=== PATIENT | female | born 2000 | race Caucasian/White ===

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

== ENCOUNTER 2022-01-20 21:35 | Emergency (ER) | payer MEDICAID ==
[~2022-01-20] VITALS: Ht 157.5 cm; Wt 66.7 kg
[2022-01-20] MEDS ORDERED: LABE200T7 PO (22:19)
[2022-01-20] MEDS ORDERED: LABETALOL 20MG VIAL IV ONE (22:30)
[2022-01-20 22:41] VITALS: BP 140/82
== END 2022-01-20 22:42 | disposition home or self-care (01) ==
LOC: EDH 21:35
DX: I10 Essential (primary) hypertension (principal); R10.84 Generalized abdominal pain; R51.9 Headache, unspecified

== ENCOUNTER 2022-05-04 22:22 | Emergency (ER) | payer MEDICAID ==
[~2022-05-04] VITALS: Ht 157.5 cm; Wt 63.5 kg
[~2022-05-04 22:22] MED LIST changes: +LABE200T7 PO
[2022-05-04 22:24] VITALS: BP 139/89
== END 2022-05-04 23:05 | disposition home or self-care (01) ==
LOC: EDH 22:22
DX: R52 Pain, unspecified (principal); Z48.00 Encounter for change or removal of nonsurgical wound dressing; Z91.010 Allergy to peanuts; Z79.899 Other long term (current) drug therapy; Z79.82 Long term (current) use of aspirin; Z90.49 Acquired absence of other specified parts of digestive tract; Z98.890 Other specified postprocedural states
CPT/HCPCS: 99281

== ENCOUNTER 2023-03-03 09:42 | Emergency (ER) | payer MEDICAID ==
[~2023-03-03] VITALS: Ht 157.5 cm; Wt 59.0 kg
[2023-03-03 10:17] LABS: BASOPHILS # (AUTO) 0.03 K/uL (0.00-0.20); BASOPHILS % (AUTO) 0.3 % (0.0-5.0); EOSINOPHILS # (AUTO) 0.07 K/uL (0.00-0.70); EOSINOPHILS % (AUTO) 0.7 % (0.0-8.0); HEMATOCRIT 43.6 % (36-48); IMMATURE GRANULOCYTE ABSOLUTE 0.05 K/uL (0-1); LYMPHOCYTES # (AUTO) 2.3 K/uL (1.0-4.8); MEAN CORPUSCULAR HEMOGLOBIN 27.7 pg (27.0-33.0); MEAN CORPUSCULAR HGB CONC 33.3 g/dL (32.0-36.0); MEAN CORPUSCULAR VOLUME 83.4 fL (80-100); MONOCYTES # (AUTO) 0.7 K/uL (0.1-1.0); NEUTROPHILS # (AUTO) 6.6 K/uL (1.8-7.7); NEUTROPHILS % (AUTO) 67.5 % (40.0-77.0); PLATELET COUNT (AUTO) 221 K/uL (130-400); RED BLOOD CELL COUNT(AUTO) 5.23 MIL/uL (4.00-5.50); RED CELL DISTRIBUTION WIDTH 13.7 % (11.0-15.5); WHITE BLOOD COUNT (AUTO) 9.8 K/uL (4.8-10.8)
[2023-03-03 10:24] LABS: CREATININE 0.8 mg/dL (0.5-1.5); POTASSIUM 3.5 mmol/L (3.5-5.1)
[2023-03-03 10:30] LABS: ALBUMIN 3.9 g/dL (3.5-5.0); BILIRUBIN,TOTAL 0.1 mg/dL (0.2-1.0); TOTAL PROTEIN, SERUM 7.6 g/dL (6.0-8.3)
[2023-03-03 10:46] LABS: APPEARANCE,URINE TURBID (CLEAR); BILIRUBIN,URINE NEGATIVE (NEGATIVE); COLOR,URINE COLORLESS (YELLOW); GLUCOSE, URINE (UA) NEGATIVE (NEGATIVE); KETONES,URINE NEGATIVE (NEGATIVE); LEUKOCYTE ESTERASE ,URINE 250 Leu/uL (NEGATIVE); NITRATE,URINE NEGATIVE (NEGATIVE); OCCULT BLOOD,URINE NEGATIVE (NEGATIVE); PROTEIN,URINE NEGATIVE (NEGATIVE); UROBILINOGEN,URINE 0.2 mg/dL (0.2-1.0)
[2023-03-03 10:49] LABS: ADD UA MICROSCOPIC YES; HCG,QUALITATIVE URINE NEGATIVE (NEGATIVE)
[2023-03-03] MEDS ORDERED: CEFTRIAXONE 1G VIAL IVPB ONE (11:00)
[2023-03-03] MEDS ORDERED: 0.9%NACL 1000ML 1,000 ML IV ONE (11:00)
[2023-03-03 11:31] LABS: BACTERIA,URINE RARE /HPF (None Seen); SQUAMOUS EPITHELIAL CELL,UR FEW /HPF (0-2)
[2023-03-03] MEDS ORDERED: IBUP-2070 PO (12:02)
[2023-03-03] MEDS ORDERED: SULF1TAB42 PO (12:02)
[2023-03-03 12:35] VITALS: BP 133/68; PULSE 78; RESP 18; O2SAT 98
== END 2023-03-03 12:36 | disposition home or self-care (01) ==
LOC: EDH 09:42
DX: R07.81 Pleurodynia (principal); N39.0 Urinary tract infection, site not specified; Z79.899 Other long term (current) drug therapy; Z90.49 Acquired absence of other specified parts of digestive tract
CPT/HCPCS: 99285; 96374; 71045; 84484; 80053; 85025; 87088; 81001; 81025; 36415; 93005; J7030; J0696

== ENCOUNTER 2023-11-27 10:39 | Emergency (ER) | payer BC, MEDICAID ==
[~2023-11-27] VITALS: Ht 157.5 cm; Wt 61.7 kg
[~2023-11-27 10:39] MED LIST changes: +CEPH500B PO; +IBUP-2070 PO; +SULF1TAB42 PO
[2023-11-27] MEDS: ondanSETRON 4MG INJ IVP ONE (11:13)
[2023-11-27] MEDS: 0.9%NACL 1000ML 1,000 ML IV ONE (11:13)
[2023-11-27 11:21] LABS: APPEARANCE,URINE CLEAR (CLEAR); BILIRUBIN,URINE NEGATIVE (NEGATIVE); COLOR,URINE YELLOW (YELLOW); GLUCOSE, URINE (UA) NEGATIVE (NEGATIVE); KETONES,URINE 20 mg/dL (NEGATIVE); LEUKOCYTE ESTERASE ,URINE NEGATIVE Leu/uL (NEGATIVE); NITRATE,URINE NEGATIVE (NEGATIVE); OCCULT BLOOD,URINE NEGATIVE (NEGATIVE); PH,URINE 6.5 (5.0-8.0); PROTEIN,URINE 10 mg/dL (NEGATIVE); UROBILINOGEN,URINE 0.2 mg/dL (0.2-1.0)
[2023-11-27 11:24] LABS: ADD UA MICROSCOPIC YES
[2023-11-27 11:27] LABS: MUCUS,URINE RARE LPF (None Seen); RBC,URINE 0-1 /HPF (0-1); SQUAMOUS EPITHELIAL CELL,UR RARE /HPF (0-2)
[2023-11-27 11:31] LABS: CREATININE 0.8 mg/dL (0.5-1.0); POTASSIUM 3.5 mmol/L (3.5-5.1)
[2023-11-27 11:37] LABS: ALBUMIN 3.9 g/dL (3.5-5.0); BILIRUBIN,DIRECT 0.1 mg/dL (0.0-0.3); BILIRUBIN,TOTAL 0.6 mg/dL (0.2-1.0); TOTAL PROTEIN, SERUM 7.4 g/dL (6.0-8.3)
[2023-11-27 12:19] LABS: BASOPHILS # (AUTO) 0.01 K/uL (0.00-0.20); BASOPHILS % (AUTO) 0.1 % (0.0-5.0); EOSINOPHILS # (AUTO) 0.06 K/uL (0.00-0.70); EOSINOPHILS % (AUTO) 0.4 % (0.0-8.0); HEMATOCRIT 44.4 % (36-48); IMMATURE GRANULOCYTE ABSOLUTE 0.08 K/uL (0-1); LYMPHOCYTES % (AUTO) 6.7 % (21.0-51.0); MEAN CORPUSCULAR HEMOGLOBIN 28.1 pg (27.0-33.0); MEAN CORPUSCULAR HGB CONC 33.3 g/dL (32.0-36.0); MEAN CORPUSCULAR VOLUME 84.3 fL (80-100); MONOCYTES # (AUTO) 0.6 K/uL (0.1-1.0); MONOCYTES % (AUTO) 4.3 % (3.0-13.0); NEUTROPHILS # (AUTO) 12.6 K/uL (1.8-7.7); NEUTROPHILS % (AUTO) 87.9 % (40.0-77.0); PLATELET COUNT (AUTO) 231 K/uL (130-400); RED BLOOD CELL COUNT(AUTO) 5.27 MIL/uL (4.00-5.50); RED CELL DISTRIBUTION WIDTH 13.7 % (11.0-15.5); WHITE BLOOD COUNT (AUTO) 14.4 K/uL (4.8-10.8)
[2023-11-27] MEDS ORDERED: FAMO-136 PO (13:57)
[2023-11-27] MEDS ORDERED: ONDA-243 PO (13:57)
[2023-11-27] MEDS: ketOROlac 15MG/ML VIAL (15MG/ML) IV ONE (14:23)
[2023-11-27 14:28] VITALS: BP 127/74; PULSE 97; RESP 20; TEMP 98.7; O2SAT 99
== END 2023-11-27 14:27 | disposition home or self-care (01) ==
LOC: EDH 10:39
DX: K52.9 Noninfective gastroenteritis and colitis, unspecified (principal); E78.00 Pure hypercholesterolemia, unspecified; I10 Essential (primary) hypertension
CPT/HCPCS: 99284; 96374; 96361; 96375; 80076; 80048; 84703; 83690; 85025; 81001; 36415; J7030; J2405; J1885

== ENCOUNTER 2024-12-31 23:18 | Emergency (ER) | payer BC, MEDICAID ==
[~2024-12-31] VITALS: Ht 157.5 cm; Wt 65.3 kg
[~2024-12-31 23:18] MED LIST changes: +FAMO-136 PO; +IBUP-1492 PO; -IBUP-2070 PO; +LABE-10 PO; +LABE-9 PO; -LABE100T7 PO; -LABE200T7 PO; +ONDA-243 PO
[2024-12-31 23:40] LABS: IMMATURE GRANULOCYTE ABSOLUTE 0.03 K/uL (0-1); NUCLEATED RED BLOOD CELLS 0.0 % (0.0-0.19); PLATELET COUNT (AUTO) 240 K/uL (130-400); RED BLOOD CELL COUNT(AUTO) 5.07 MIL/uL (4.00-5.50); RED CELL DISTRIBUTION WIDTH 13.1 % (11.0-15.5); WHITE BLOOD COUNT (AUTO) 9.6 K/uL (4.8-10.8)
[2024-12-31 23:53] LABS: CREATININE 0.7 mg/dL (0.5-1.0); GLOMERULAR FILTR. RATE CALC 125.0 mL/min (>90); GLUCOSE,RANDOM 94.0 mg/dL (70-105); SODIUM SERUM 137.0 mmol/L (136-145); UREA NITROGEN, BLOOD 20.0 mg/dL (7-18)
--- NOTE | 2024-12-31 23:55 | ERN ---
General Chief Complaint: Chest Pain Stated Complaint: C/O CP ON AND OFF TODAY, NUMBNESS TO LEFT ARM Time Seen by MD: 23:28 History of Present Illness Initial Comments 24-year-old female here for evaluation of chest pain. States the chest pain has centrally located that radiates to her left arm. Denies any trauma to the chest. Denies any heavy lifting. States that the pain started yesterday howev er worsened into today. No fever no cough no shortness a breath. No nausea vomiting diarrhea. No abdominal pain. Dysuria. Past medical history: Hypertension Allergies: Coded Allergies: No Known Allergies (Unverified Allergy, Unknown, 11/07/21) peanut (Unverified Allergy, Unknown, hives, 12/03/21) Uncoded Allergies: sea food (Allergy, Unknown, hives , 12/03/21) Home Meds Active Scripts Famotidine (Pepcid) 20 Mg Tablet, 20 MG PO BID for 5 Days, #10 TAB Prov:SARITA PAREKH 11/27/23 Ondansetron (Ondansetron Odt) 4 Mg Tab.rapdis, 4 MG PO BID for 7 Days, #14 TAB Prov:SARITA PAREKH [facility] 11/27/23 Cephalexin Monohydrate (Keflex) 500 Mg Cap, 500 MG PO QID for 7 Days, #28 CAP Prov:GLORIA BOOKER MD 08/20/23 Ibuprofen (Ibuprofen) 600 Mg Tablet, 600 MG PO Q6H PRN for PAIN, #30 TAB Prov:WISAM RAMIREZ [facility] [place] 03/03/23 Sulfamethoxazole/Trimethoprim (Bactrim Ds Tablet) 800 Mg-160 Mg Tablet, 1 TAB PO BID for 7 Days, #14 TAB 0 Refills Prov:WISAM RAMIREZ [facility] 03/03/23 Labetalol HCl (Labetalol HCl) 200 Mg Tablet, 200 MG PO TID, #90 TAB 3 Refills Prov:KELVIN ANTUNEZ MD 01/20/22 Reported Medications Vits W-Ca,Fe,FA(<1Mg) ( Vitamins) 1 Each Tablet, 1 EACH PO HS, TAB 12/05/21 Aspirin (Aspirin) 81 Mg Tab.chew, 81 MG PO DAILYDINNER, TAB.CHEW 12/05/21 Labetalol HCl (Labetalol HCl) 100 Mg Tablet, 100 MG PO TID for HYPERTENSION, TAB 12/05/21 Nitrofurantoin Monohyd/M-Cryst (Macrobid 100 mg Capsule) 100 Mg Capsule, 100 MG PO BID for URINARY TRACT INFECTION, CAP 12/05/21 Past Medical History Past Medical History: High Cholesterol, Hypertension Medical History Other: PRE-ECLAMPSIA Past Surgical History: Appendectomy, Social History Social History: Negative, Lives with family Female( History) : 1 Para: 1 Aborts: 0 Cardiovascular: (+) chest pain Physical Exam Physical Exam Dictation GENERAL APPEARANCE NAD, activity normal for age, well developed/ well nourished, no cyanosis, pallor, or diaphoresis. EYES lids/conjunctiva normal. EARS/NOSE/THROAT Mucous membranes moist, nares normal, lips/teeth normal uvula midline without oral pharyngeal erythema, exudate or swelling TMs normal bilaterally. No lymphangitis/lymphedema. HEAD/NECK normocephalic atraumatic, no facial trauma, neck is supple. RESPIRATORY respiratory effort normal, speaks in full sentences, no tripod position, no accessory muscle use. Lungs clear to auscultation without rhonchi, wheezes, rales CARDIAC Regular rate and rhythm, no edema. ABDOMINAL Soft, ND/NT. No evidence of fluid wave. No pulsatile masses on exam, rebound tenderness, Perez sign or pain over Mcburney's point. MUSCLES/EXTREMITIES No abnormal range of motion, no swelling. Reproducible tenderness to palpation on left upper chest SKIN Warm, pink and dry. No rashes, dermatoses, petechiae or lesions. NEUROLOGICAL Speech is clear and appropriate. Normal level of consciousness. Gait and coordination are normal. 5/5 strength in all extremities. PSYCH Normal mood and affect. Judgement/competence is appropriate General Appearance: (+) no apparent distress Orientation: (+) alert, (+) oriented x 3 Results Laboratory and Microbiology Lab and Micro Result Laboratory Tests Test 12/31/24 23:34 01/01/25 00:03 White Blood Count 9.6 K/uL (4.8-10.8) Red Blood Count 5.07 MIL/uL (4.00-5.50) Hemoglobin 14.3 g/dL (12.0-16.0) Hematocrit 43.7 % (36-48) Mean Corpuscular Volume 86.2 fL (79-99) Mean Corpuscular Hemoglobin 28.2 pg (27.0-33.0) Mean Corpuscular Hemoglobin Concent 32.7 g/dL (32.0-36.0) Red Cell Distribution Width 13.1 % (11.0-15.5) Platelet Count 240 K/uL (130-400) Mean Platelet Volume 11.9 fL (7.5-10.5) H Immature Granulocyte % (Auto) 0.3 % (0-1) Neutrophils (%) (Auto) 61.0 % (40.0-77.0) Lymphocytes (%) (Auto) 32.3 % (21.0-51.0) Monocytes (%) (Auto) 5.5 % (3.0-13.0) Eosinophils (%) (Auto) 0.6 % (0.0-8.0) Basophils (%) (Auto) 0.3 % (0.0-5.0) Neutrophils # (Auto) 5.9 K/uL (1.8-7.7) Lymphocytes # (Auto) 3.1 K/uL (1.0-4.8) Monocytes # (Auto) 0.5 K/uL (0.1-1.0) Eosinophils # (Auto) 0.06 K/uL (0.00-0.70) Basophils # (Auto) 0.03 K/uL (0.00-0.20) Absolute Immature Granulocyte (auto 0.03 K/uL (0-1) Nucleated Red Blood Cells 0.0 % (0.0-0.19) Sodium Level 137 mmol/L (136-145) Potassium Level 3.9 mmol/L (3.5-5.1) Chloride Level 101 mmol/L (101-111) Carbon Dioxide Level 28 mmol/L (21-32) Blood Urea Nitrogen 20 mg/dL (7-18) H Creatinine 0.7 mg/dL (0.5-1.0) Glomerular Filtration Rate Calc 125 mL/min (>90) Random Glucose 94 mg/dL (70-105) Total Calcium 8.8 mg/dL (8.5-10.1) Troponin I High Sensitivity < 4 ng/L (4-50) L Serum Test, Qualitative NEGATIVE (NEGATIVE) Urine Color LIGHT-YELLOW (YELLOW) Urine Appearance CLOUDY (CLEAR) H Urine pH 5.5 (5.0-8.0) Urine Specific [place] 1.032 (1.001-1.031) Urine Protein 10 mg/dL (NEGATIVE) H Urine Glucose (UA) NEGATIVE mg/dL (NEGATIVE) Urine Ketones 20 mg/dL (NEGATIVE) H Urine Occult Blood NEGATIVE (NEGATIVE) Urine Nitrate NEGATIVE (NEGATIVE) Urine Bilirubin NEGATIVE mg/dL (NEGATIVE) Urine Urobilinogen 0.2 mg/dL (0.2-1.0) Urine Leukocyte Esterase 250 [place]ora/uL (NEGATIVE) H Urine RBC 2-5 /HPF (0-1) H Urine WBC 6-10 /HPF (0-1) H Urine Squamous Epithelial Cells MOD /HPF (0-2) Urine Bacteria None /HPF (None Seen) Urine Opiates Screen NEGATIVE (NEGATIVE) Urine Barbiturates Screen NEGATIVE (NEGATIVE) Urine Phencyclidine Screen NEGATIVE (NEGATIVE) Urine Amphetamines Screen NEGATIVE (NEGATIVE) Urine Benzodiazepines Screen NEGATIVE (NEGATIVE) Urine Cocaine Screen NEGATIVE (NEGATIVE) Urine Marijuana (THC) Screen NEGATIVE (NEGATIVE) MDM 24-year-old female here for chest pain. Signs and symptoms likely consistent with costochondritis. However due to patient's history we will get a full cardiac workup to rule out any intrathoracic abnormalities. Disposition pending labs and imaging. Likely discharge home ED Course Orders Procedure Category Date Status Time 12 Lead Ekg Tracing- EKG 12/31/24 Logged Technical 23:23 Basic Metabolic Panel LAB 12/31/24 Complete 23:29 Troponin I High LAB 12/31/24 Complete Sensitivity 23:29 Chest 1vw RAD 12/31/24 Taken 23:29 Drug Screen Urine LAB 12/31/24 Complete 23:29 Cbc With Differential LAB 12/31/24 Complete 23:34 Testing, LAB 12/31/24 Complete Serum Hcg 23:43 Urinalysis LAB 01/01/25 Complete W/Microscopic 00:03 Culture Urine SUMEET 01/01/25 In Process 00:52 Vital Signs Date Time Temp Pulse Resp B/P (MAP) Pulse Ox O2 Delivery O2 Flow Rate FiO2 12/31/24 23:36 99.0 89 16 151/93 97 Room Air* 0 21 12/31/24 23:20 99.0 82 20 160/100 99 Here for costochondritis. Reproducible tenderness on palpation. Discharge home at this time. Reviewed labs and imaging with the patient. Patient's prior external medical records from other ER visits were reviewed by me as indicated. Prior testing and results from previous visits were reviewed. Prior tests were taken into account with medical decision making and resource utilization, independent historian/historians were used to obtain complete medical history. I independently interpreted the test that were performed, results were reviewed by me and considered findings on radiology if ordered. Medical management and examination interpretation discussions were had by me with other qualified healthcare professionals as indicated for the patient's care. Labs and imaging reviewed with patient. All questions answered at this time. Patient advised to follow up with primary care physician in the next few days. Patient well-appearing, no acute distress. Vital signs stable. Will discharge at this time. HEART Score Response (Comments) Value History: Low suspicion (0) 0 EKG: Normal 0 Age: < 45yrs (0) 0 Risk Factors: 1-2 risk factors (+1) 1 Initial Troponin: Normal limit (0) 0 HEART Score Risk: Low Risk for MACE (1-3) Total 1 DX & DISP Disposition: Discharge Departure Impression: Primary Impression: Costochondritis Condition: Stable Referrals: SELF,REFERRAL (PCP) DAVID RODRIGUEZ MD Dec 31, 2024 23:55
[2025-01-01 00:45] LABS: AMPHET/METH SCREEN,URINE NEGATIVE (NEGATIVE); BARBITURATE SCREEN, URINE NEGATIVE (NEGATIVE); CANNABINOID SCREEN,URINE NEGATIVE (NEGATIVE); COCAINE SCREEN,URINE NEGATIVE (NEGATIVE)
[2025-01-01 00:52] LABS: APPEARANCE,URINE CLOUDY (CLEAR); GLUCOSE, URINE (UA) NEGATIVE (NEGATIVE); LEUKOCYTE ESTERASE ,URINE 250 Leu/uL (NEGATIVE); NITRATE,URINE NEGATIVE (NEGATIVE); OCCULT BLOOD,URINE NEGATIVE (NEGATIVE); SQUAMOUS EPITHELIAL CELL,UR MOD /HPF (0-2)
[2025-01-01 01:23] VITALS: BP 132/90; PULSE 82; RESP 14; TEMP 98.6; O2SAT 99
--- NOTE | 2025-01-01 03:47 | HMCIMG ---
EXAM: CR Chest, 1 view CLINICAL HISTORY: Chest pain. COMPARISON: None provided. FINDINGS: The lungs show no infiltrates or other acute findings. No pleural effusion or pneumothorax. The cardiomediastinal silhouette is within normal limits. No acute osseous abnormality. IMPRESSION: No acute cardiopulmonary process is evident. /[place]
--- NOTE | 2025-01-01 05:48 | EKG ---
[facility] Test Date: 2024-12-31 Test Time: 23:26:46 Pat Name: ADRIANA REIS Department: ED Room: Gender: F Supervisor Felting: [phone] : 2000 Requested By: DAVID RODRIGUEZ Order Number: [id number] Reading MD: Amrita Batista Measurements Intervals [place] Rate: 84 P: 67 [place]: 141 QRS: 22 QRSD: 89 T: 45 QT: 384 QTc: 454 Interpretive Statements Sinus rhythm Abnormal Q suggests anterior infarct Compared to ECG 08/20/2023 03:14:42 No significant changes Electronically Signed On 01-02-2025 08:45:48 [employer]IP[employer] by Amrita Batista Please click the below link to view image of tracing.
== END 2025-01-01 01:24 | disposition home or self-care (01) ==
LOC: EDH 23:18
DX: M94.0 Chondrocostal junction syndrome [Tietze] (principal); E78.00 Pure hypercholesterolemia, unspecified; I10 Essential (primary) hypertension; Z79.899 Other long term (current) drug therapy; Z87.59 Personal history of other complications of pregnancy, childbirth and the puerperium; Z90.49 Acquired absence of other specified parts of digestive tract; Z91.010 Allergy to peanuts
CPT/HCPCS: 36415; 71045; 80048; 80305; 81001; 84484; 84703; 85025; 87086; 93005; 99285